=== PATIENT | male | born 1985 | race Caucasian/White ===

== ENCOUNTER 2025-07-19 18:49 | Observation (INO) ==
--- NOTE | 2025-07-19 19:00 | Emergency Department Note ---
Impression & Plan Hemoperitoneum, Post-operative pain, Tachycardia ED Provider Note NAME: GRAYSON RAMOS AGE: 40 SEX: M : 1985 ARRIVES VIA: Ambulance INFORMANT: Patient, ED PROVIDER(S): Frantz Youngblood DO CHIEF COMPLAINT: Abdominal pain HPI: The patient is a 40-year-old male who presented to the emergency department by ambulance for an evaluation of abdominal pain. The patient was experiencing abdominal distention and abdominal pain after having ventral hernia repair today. The patient called the on-call surgeon it was instructed to come to the emergency department. He denies having any headache but feels that he may pass out when he stands up. He describes difficulty breathing. He describes abdominal distention. ROS: See above HPI for pertinent positives & negatives. A total of 10 systems reviewed and were otherwise negative. PAST MEDICAL HISTORY: See Below PAST SURGICAL HISTORY: See Below FAMILY HISTORY: See Below SOCIAL HISTORY: See Below HOME MEDICATIONS: See Below ALLERGIES: See Below VITALS: See Below PHYSICAL EXAMINATION: GENERAL: The patient is awake and alert. He appears anxious and uncomfortable. EYES: The conjunctivae are clear. The pupils are round and reactive. EARS, NOSE, MOUTH AND THROAT: The nose is without any evidence of any deformity. NECK: The neck is nontender and supple. RESPIRATORY: Normal respiratory effort is noted there is no evidence of wheezing rhonchi or rales CARDIOVASCULAR: Tachycardic and regular heart sounds were noted to auscultation. There is no definite murmur. GASTROINTESTINAL: The abdomen was distended. There is diffuse tenderness to palpation. Surgical sites were noted. There was no erythema drainage or bleeding noted. Wound dressings are in place. MUSCULOSKELETAL/EXTREMITIES: There is no evidence of gross deformity full range of motion is noted in the hips and shoulders. SKIN: There is no obvious evidence of any rash. There are no petechiae, pallor or cyanosis noted. NEUROLOGIC: Patient is awake alert and oriented x3. Strength is symmetric. There is no facial droop. MEDICAL DECISION MAKING: The patient is a 40-year-old male who presented to the emergency department for an evaluation of abdominal pain. The patient is status post laparoscopic ventral hernia repair. The patient was tachycardic. She had episodes of hypotension. I discussed the patient's laboratory and radiographic studies with him. I discussed his condition with the on-call general surgeon. The patient was treated with IV pain medication and IV fluids. He was reevaluated multiple times. I did consent the patient for blood transfusion if needed. He was evaluated in the emergency department by the general surgeon. He was felt to be a good candidate for nonoperative management at this time but they will continue to monitor the patient's hemoglobin and clinical status. Triage Nursing notes reviewed. Prior medical records reviewed Vital Signs: reviewed and remarkable for tachycardia and intermittent hypotension. Differential diagnosis: Differential diagnosis could include postoperative bleeding, postoperative infection, postoperative pain. Also considered could be injury to adjacent structures. Other differentials were also considered. ER treatment provided: See below Diagnostics interpreted by me: ECG: EKG was obtained in the emergency department. My interpretation is sinus tachycardia at 125 bpm. There is no ectopy. There is no acute ST segment abnormalities noted. QTc was 433 ms. Cardiac Monitoring: An order was placed for continuous cardiac monitoring. The monitor shows a rate of 127 bpm with sinus tachycardia. Laboratory studies: As stated above and show below. Imaging studies: See below. Radiographic imaging was reviewed by myself Consultation(s): I discussed this case with Dr. Dao who is on-call for the general surgical group. ED COURSE: Procedures: none Critical Care: I have personally spent greater than 40 minutes of critical care time in the direct management of this patient. This includes bedside care, interpretation of diagnostic studies, and testing, discussion with consultants, patient, and family members, and other required patient management activities. This 40 minutes is in excess of all separately billable procedures. Past Med/Surg History Problem List (Updated 07/19/25 @ 23:19 by Frantz Youngblood DO) Tachycardia (Acute) Post-operative pain (Acute) Hemoperitoneum (Acute) Intra-abdominal hemorrhage after procedure Ventral hernia, recurrent Encounter for pre-operative examination Medical History Morbid obesity Acid reflux Sleep apnea CPAP Hypertension Surgical History History of hernia surgery 03/08/25: GA: elective Glidescope atraumatic x 1 (Glidescope #3, ETT#7.5, Gr View 2) Status post myringotomy with tube placement of both ears no anesthesia History of surgery on lower extremity Right - Tib/Fib - Hardware present History of ankle surgery Left - Hardware History of esophagogastroduodenoscopy (EGD) (01/2025) History of colonoscopy (01/2025) Family History Other No family history of adverse response to anesthesia Social History Smoking Status: Never smoker Tobacco Type: Smokeless Tobacco (Dip or Chew) Second Hand Exposure: No; Do You Dip or Chew Tobacco: Yes; Hx Alcohol Use: Yes Alcohol type: beer Hx Substance Use: No Preferred Language: Albanian Communication Ability: Effective 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 Beliefs That Will Affect Care: None Current Living Situation: Family Current Living Situation Comment: and Son Feels Safe at Home: Yes Assistive Devices: BiPap Allergies Allergies Allergy/AdvReac Type Severity Reaction Status Date / Time Penicillins Allergy Intermediate Hives Verified 07/19/25 07:06 Home Meds Home Medications Medication Instructions Recorded Confirmed lisinopril 5 mg tablet 5 mg PO QAM 02/26/25 07/08/25 pantoprazole 20 mg tablet,delayed 20 mg PO QAM 02/26/25 07/08/25 release Previous Rx's Medication Instructions Recorded oxycodone-acetaminophen 5 mg-325 1 tab PO Q6H PRN pain #14 tabs 07/19/25 mg tablet (Percocet) Results & Data (ED) Vital Signs Vital Signs - 24 hr 07/19/25 18:57 07/19/25 19:00 07/19/25 19:30 Temperature Temperature Source Pulse Rate 126 H 130 H 120 H Pulse Rate from SpO2 Sensor 128 H 120 H Pulse Rhythm Pulse Strength Respiratory Rate 24 17 Respiratory Effort / Characteristics Respiratory Depth Respiratory Pattern Blood Pressure 107/87 107/75 Blood Pressure Mean 93 85 Blood Pressure Position Pulse Oximetry 95 93 Oxygen Delivery Method Room Air Sepsis Recent Fever Within 48 Hours Sepsis New/Unexplained Change in Mental Status Sepsis Action Taken by Nursing 07/19/25 19:34 07/19/25 19:34 07/19/25 20:24 Temperature 37.0 C Temperature Source Oral Pulse Rate 124 H 124 H Pulse Rate from SpO2 Sensor Pulse Rhythm Regular Regular Pulse Strength Normal Respiratory Rate 18 18 Respiratory Effort / Characteristics Non-Labored Respiratory Depth Normal Respiratory Pattern Regular Blood Pressure 107/75 98/81 L Blood Pressure Mean 85 89 Blood Pressure Position Sitting Pulse Oximetry 95 95 Oxygen Delivery Method Room Air Room Air Sepsis Recent Fever Within 48 Hours No Sepsis New/Unexplained Change in Mental Status N/A Sepsis Action Taken by Nursing No Action Required 07/19/25 20:30 07/19/25 21:00 07/19/25 21:33 Temperature Temperature Source Pulse Rate 123 H 122 H 130 H Pulse Rate from SpO2 Sensor 123 H 122 H Pulse Rhythm Pulse Strength Respiratory Rate 25 H 18 20 Respiratory Effort / Characteristics Respiratory Depth Respiratory Pattern Blood Pressure 105/77 99/70 L 114/78 Blood Pressure Mean 86 79 90 Blood Pressure Position Pulse Oximetry 95 95 93 Oxygen Delivery Method Room Air Room Air Room Air Sepsis Recent Fever Within 48 Hours Sepsis New/Unexplained Change in Mental Status Sepsis Action Taken by Nursing 07/19/25 22:00 07/19/25 22:50 Temperature Temperature Source Pulse Rate 119 H 127 H Pulse Rate from SpO2 Sensor 118 H Pulse Rhythm Pulse Strength Respiratory Rate 18 Respiratory Effort / Characteristics Respiratory Depth Respiratory Pattern Blood Pressure 110/69 Blood Pressure Mean 82 Blood Pressure Position Pulse Oximetry 94 Oxygen Delivery Method Room Air Sepsis Recent Fever Within 48 Hours Sepsis New/Unexplained Change in Mental Status Sepsis Action Taken by Intermediate Medications Current Medication List: was personally reviewed by me Laboratory Data Attestation: I reviewed the patient's lab results. 07/19/25 22:37 07/19/25 18:50 Lab Results 07/19/25 07/19/25 07/19/25 Range/Units 18:50 19:31 21:35 WBC 14.75 H (4.8-10.8) K/ul RBC 4.13 L (4.70-6.10) M/uL Hgb 13.5 L D (14.0-18.0) g/dL POC Hgb 12.9 L (14.0-18.0) g/dl Hct 37.5 L (42.0-52.0) % POC Hct 38 L (42-52) % MCV 90.8 (80.0-100.0) fL MCH 32.7 (25.0-34.0) pg MCHC 36.0 (32.0-36.0) g/dL RDW Std Deviation 43.3 (36.4-46.3) fL RDW Coeff of Emily 13.2 (11.5-14.5) % Plt Count 212 (130-400) K/uL MPV 9.8 (9.4-12.4) fL Immature Gran % (Auto) 0.9 % Neut % (Auto) 86.8 % Lymph % (Auto) 8.8 % [place] % (Auto) 3.3 % Eos % (Auto) 0.0 % Baso % (Auto) 0.2 % Neut # (Auto) 12.81 H (1.40-6.50) K/uL Lymph # (Auto) 1.30 (1.20-3.40) K/uL [place] # (Auto) 0.48 (0.11-0.59) K/uL Eos # (Auto) 0.00 (0.00-0.50) K/uL Baso # (Auto) 0.03 (0.00-0.20) K/uL Immature Gran # (Auto) 0.13 (0.01-0.20) K/uL POC Sodium 133 L (135-144) mmol/L Sodium 134 L (136-145) mmol/L POC Potassium 5.9 H (3.3-5.0) mmol/L Potassium 5.3 H D (3.5-5.1) mmol/L POC Chloride 99 L (101-112) mmol/L Chloride 100 (98-107) mmol/L Carbon Dioxide 25 (21-32) mmol/L POC Total CO2 21 L (24-31) mmol/L Anion Gap 9 (3-11) POC Anion Gap 21.0 (16-25) mmol/L POC BUN 16 (7-18) mg/dl BUN 17 (6-23) mg/dl Creatinine 1.31 (0.6-1.4) mg/dl POC Creatinine 1.4 H (0.6-1.3) mg/dl Est Cr Clr Drug Dosing 100.3 ml/min eGFR 71.45 BUN/Creatinine Ratio 13.0 (10-20) Glucose 186 H (70-99(Fasting)) mg/dl POC Glucose (other) 171 H (70-99) mg/dl Calcium 8.5 L (8.6-10.3) mg/dl POC Ioniz Calcium [place] 0.99 L (1.12-1.32) mmol/l Total Bilirubin 0.9 (0.2-1.0) mg/dl AST 25 (13-39) U/L ALT 38 (7-52) U/L Alkaline Phosphatase 58 (34-104) U/L Troponin I High Sens 9.1 (0-20) pg/ml Total Protein 6.9 (6.0-8.3) gm/dl Albumin 4.0 (3.4-5.0) gm/dl Globulin 2.9 (2.5-4.0) gm/dl Albumin/Globulin Ratio 1.4 (0.9-2) Lipase 11 (11-82) U/L Urine Color Urine Appearance (Clear) Urine pH (4.5-7.5) Ur Specific [place] (1.000-1.030) Urine Protein (Negative) Urine Glucose (UA) (Negative) Urine Ketones (Negative) Urine Blood (Negative) Urine Nitrite (Negative) Urine Bilirubin (Negative) Urine Urobilinogen (Negative) Ur Leukocyte Esterase (Negative) Urine WBC (Auto) (0-5) /hpf Urine RBC (Auto) (0-2) /hpf U Hyaline Cast (Auto) (0-2) /lpf U Epithel Cells (Auto) (0-2) /hpf Urine Bacteria (Auto) (None Seen) Hyaline Casts (None Presnt) /lpf Urine Comment Blood Type A Positive Antibody Screen NEGATIVE 07/19/25 07/19/25 Range/Units 22:37 Unknown WBC (4.8-10.8) K/ul RBC (4.70-6.10) M/uL Hgb 11.4 L (14.0-18.0) g/dL POC Hgb (14.0-18.0) g/dl Hct 32.6 L (42.0-52.0) % POC Hct (42-52) % MCV (80.0-100.0) fL MCH (25.0-34.0) pg MCHC (32.0-36.0) g/dL RDW Std Deviation (36.4-46.3) fL RDW Coeff of Emily (11.5-14.5) % Plt Count (130-400) K/uL MPV (9.4-12.4) fL Immature Gran % (Auto) % Neut % (Auto) % Lymph % (Auto) % [place] % (Auto) % Eos % (Auto) % Baso % (Auto) % Neut # (Auto) (1.40-6.50) K/uL Lymph # (Auto) (1.20-3.40) K/uL [place] # (Auto) (0.11-0.59) K/uL Eos # (Auto) (0.00-0.50) K/uL Baso # (Auto) (0.00-0.20) K/uL Immature Gran # (Auto) (0.01-0.20) K/uL POC Sodium (135-144) mmol/L Sodium (136-145) mmol/L POC Potassium (3.3-5.0) mmol/L Potassium (3.5-5.1) mmol/L POC Chloride (101-112) mmol/L Chloride (98-107) mmol/L Carbon Dioxide (21-32) mmol/L POC Total CO2 (24-31) mmol/L Anion Gap (3-11) POC Anion Gap (16-25) mmol/L POC BUN (7-18) mg/dl BUN (6-23) mg/dl Creatinine (0.6-1.4) mg/dl POC Creatinine (0.6-1.3) mg/dl Est Cr Clr Drug Dosing ml/min eGFR BUN/Creatinine Ratio (10-20) Glucose (70-99(Fasting)) mg/dl POC Glucose (other) (70-99) mg/dl Calcium (8.6-10.3) mg/dl POC Ioniz Calcium [place] (1.12-1.32) mmol/l Total Bilirubin (0.2-1.0) mg/dl AST (13-39) U/L ALT (7-52) U/L Alkaline Phosphatase (34-104) U/L Troponin I High Sens (0-20) pg/ml Total Protein (6.0-8.3) gm/dl Albumin (3.4-5.0) gm/dl Globulin (2.5-4.0) gm/dl Albumin/Globulin Ratio (0.9-2) Lipase (11-82) U/L Urine Color Yellow Urine Appearance Clear (Clear) Urine pH 5.5 (4.5-7.5) Ur Specific [place] 1.036 H (1.000-1.030) Urine Protein 1+ H (Negative) Urine Glucose (UA) Negative (Negative) Urine Ketones Trace H (Negative) Urine Blood Negative (Negative) Urine Nitrite Negative (Negative) Urine Bilirubin Negative (Negative) Urine Urobilinogen Negative (Negative) Ur Leukocyte Esterase Negative (Negative) Urine WBC (Auto) 0-5 (0-5) /hpf Urine RBC (Auto) 0-2 (0-2) /hpf U Hyaline Cast (Auto) 11-20 H (0-2) /lpf U Epithel Cells (Auto) 0-2 (0-2) /hpf Urine Bacteria (Auto) None Seen (None Seen) Hyaline Casts Present A (None Presnt) /lpf Urine Comment Blood Type Antibody Screen Administered Medications Sodium Chloride (Nss) 1,000 mls @ 999 mls/hr IV .Q1H1M ONE Stop: 07/19/25 23:47 Last Admin: 07/19/25 22:56 Dose: 999 mls/hr Documented By: phill Discontinued Medications Sodium Chloride (Nss) 1,000 mls @ 999 mls/hr IV .Q1H1M STA Stop: 07/19/25 19:54 Last Infusion: 07/19/25 21:07 Dose: Infused Documented By: [email or web address] Admin: 07/19/25 19:20 Dose: 999 mls/hr Documented By: phill Sodium Chloride (Nss) 1,000 mls @ 999 mls/hr IV .Q1H1M ONE Stop: 07/19/25 22:10 Last Infusion: 07/19/25 22:30 Dose: Infused Documented By: phill Admin: 07/19/25 21:25 Dose: 999 mls/hr Documented By: phill Ioversol (Optiray 320 125ml) 118 ml IV ONCE ONE Stop: 07/19/25 20:05 Last Admin: 07/19/25 20:04 Dose: 118 ml Documented By: TONEY Morphine Sulfate (Morphine Sulfate 4 Mg/Ml 1 Ml Carp\Vial) 4 mg IV NOW STA Stop: 07/19/25 18:55 Last Admin: 07/19/25 19:20 Dose: 4 mg Documented By: phill Ondansetron HCl (Ondansetron Inj 2 Mg/Ml 2 Ml Vial) 4 mg IV NOW STA Stop: 07/19/25 18:55 Last Admin: 07/19/25 19:20 Dose: 4 mg Documented By: phill Imaging Data Attestation: I personally reviewed and interpreted this imaging study as follows: My Impression: CT of the abdomen and pelvis was obtained in the emergency department. My interpretation is free fluid noted in the abdomen, no free air, final report below. Radiologist's Impression: Abdomen/Pelvis CT 07/19/25 18:54 CR Exam(s): CT ABDOMEN + PELVIS With Contrast IV Amt: 119ml opti 320 EXAM: CT Abdomen and Pelvis With Intravenous Contrast CLINICAL HISTORY: Reason for exam: post op pain. TECHNIQUE: Axial computed tomography images of the abdomen and pelvis with intravenous contrast. CTDI is 27.34 mGy and DLP is 1511.65 mGy-cm. Automated exposure control was utilized for the study. A dose lowering technique was utilized adhering to the principles of ALARA. CONTRAST: Patient received 119ml opti 320 of IV contrast COMPARISON: No relevant prior studies available. FINDINGS: Lung bases: Please see separate dictation for details of the intra thoracic contents. ABDOMEN: Liver: Hepatic steatosis. Gallbladder and bile ducts: Unremarkable. No calcified stones. No ductal dilation. Pancreas: Unremarkable. No mass. No ductal dilation. Spleen: Unremarkable. No splenomegaly. Adrenals: Unremarkable. No mass. Kidneys and ureters: Unremarkable. No solid mass. No hydronephrosis. Stomach and bowel: Unremarkable. No obstruction. No mucosal thickening. PELVIS: Appendix: No findings to suggest acute appendicitis. Bladder: Unremarkable. No mass. Reproductive: Unremarkable as visualized. ABDOMEN and PELVIS: Intraperitoneal space: Midline anterior abdominal wall postsurgical change with fluid seen within the operative site. This measures roughly 1.8 x 8.1 cm. There is a 8.9 x 12 cm collection of hemorrhage seen within the left lower quadrant which investing itself between several loops of small bowel. Hyperdense fluid is seen elsewhere within the lower abdomen and in the perisplenic and perihepatic regions consistent with moderate hemoperitoneum. No free air. Bones/joints: No acute fracture. No dislocation. Soft tissues: Unremarkable. Vasculature: Unremarkable. No abdominal aortic aneurysm. Lymph nodes: Unremarkable. No enlarged lymph nodes. IMPRESSION: Moderate hemoperitoneum in the etiology of which is not clearly seen on this exam. There is large amount of hemorrhage however seen within the left lower quadrant. This may serve as a nidus of the intra abdominal bleeding. Hepatic steatosis Communications: Call Doctor Rolanditoneum, massive Electronically signed by: Chip Adams MD 07/19/25 21:26 PM Discharge Plan Visit Data Chief Complaint: Abdominal Pain Stated Complaint: AB PAIN ED Provider: Frantz Youngblood Discharge Problem: Hemoperitoneum, Post-operative pain, Tachycardia Patient Disposition: Being Evaluated by Surgeon Condition: Fair Forms Stand Alone Forms: [facility] [employer] Prescriptions Prescriptions: No Action pantoprazole 20 mg Tablet,Delayed Release (Dr/Ec) 20 mg PO QAM lisinopril 5 mg Tablet 5 mg PO QAM oxycodone-acetaminophen [Percocet] 5-325 mg tablet 1 tab PO Q6H PRN (Reason: pain) Qty: 14 0RF Referrals Referrals: PCP,NO [Physician] -
[2025-07-19] MEDS: SODIUM CHLORIDE 0.9% 1,000 ML IV STA (19:20)
[2025-07-19] MEDS: ONDANSETRON INJ 2 MG/ML 2 ML VIAL IV STA (19:20)
[2025-07-19] MEDS: MoRPHine SULFATE 4 MG/ML 1 ML CARP\\VIAL IV STA ×2 (19:20→23:30)
[2025-07-19 19:27] LABS: Hematocrit (blood only) 37.5 % (42.0-52.0); Hemoglobin 13.5 g/dL (14.0-18.0); Mean Corpuscular Hemoglobin 32.7 pg (25.0-34.0); Mean Corpuscular Volume 90.8 fL (80.0-100.0); Platelet Count 212 K/uL (130-400); RDW Standard Deviation 43.3 fL (36.4-46.3); Red Blood Count 4.13 M/uL (4.70-6.10); White Blood Count 14.75 K/ul (4.8-10.8)
[2025-07-19 19:28] LABS: Immature Granulocytes # (auto) 0.13 K/uL (0.01-0.20); Immature Granulocytes % (auto) 0.9 %
[2025-07-19 19:59] LABS: Alanine Aminotransferase 38.0 U/L (7-52); Albumin Globulin Ratio 1.4 (0.9-2); Albumin Level 4.0 gm/dl (3.4-5.0); Alkaline Phosphatase 58.0 U/L (34-104); Anion Gap 9.0 (3-11); Bilirubin,Total 0.9 mg/dl (0.2-1.0); Blood Urea Nitrogen 17.0 mg/dl (6-23); Calcium 8.5 mg/dl (8.6-10.3); Carbon Dioxide 25.0 mmol/L (21-32); Chloride 100.0 mmol/L (98-107); Creatinine Clr Calc Pharmacy 100.3 ml/min; Globulin 2.9 gm/dl (2.5-4.0); Glucose 186.0 mg/dl (70-99(Fasting)); Lipase 11.0 U/L (11-82); Potassium 5.3 mmol/L (3.5-5.1); Sodium 134.0 mmol/L (136-145); Total Protein 6.9 gm/dl (6.0-8.3)
[2025-07-19] MEDS: OPTIRAY 320 125ml IV ONE (20:04)
[2025-07-19] MEDS: SODIUM CHLORIDE 0.9% 1,000 ML IV ONE ×2 (21:25→22:56)
--- NOTE | 2025-07-19 21:27 | CT Scan Report ---
Exam(s): CT ABDOMEN + PELVIS With Contrast IV Amt: 119ml opti 320 EXAM: CT Abdomen and Pelvis With Intravenous Contrast CLINICAL HISTORY: Reason for exam: post op pain. TECHNIQUE: Axial computed tomography images of the abdomen and pelvis with intravenous contrast. CTDI is 27.34 mGy and DLP is 1511.65 mGy-cm. Automated exposure control was utilized for the study. A dose lowering technique was utilized adhering to the principles of ALARA. CONTRAST: Patient received 119ml opti 320 of IV contrast COMPARISON: No relevant prior studies available. FINDINGS: Lung bases: Please see separate dictation for details of the intra thoracic contents. ABDOMEN: Liver: Hepatic steatosis. Gallbladder and bile ducts: Unremarkable. No calcified stones. No ductal dilation. Pancreas: Unremarkable. No mass. No ductal dilation. Spleen: Unremarkable. No splenomegaly. Adrenals: Unremarkable. No mass. Kidneys and ureters: Unremarkable. No solid mass. No hydronephrosis. Stomach and bowel: Unremarkable. No obstruction. No mucosal thickening. PELVIS: Appendix: No findings to suggest acute appendicitis. Bladder: Unremarkable. No mass. Reproductive: Unremarkable as visualized. ABDOMEN and PELVIS: Intraperitoneal space: Midline anterior abdominal wall postsurgical change with fluid seen within the operative site. This measures roughly 1.8 x 8.1 cm. There is a 8.9 x 12 cm collection of hemorrhage seen within the left lower quadrant which investing itself between several loops of small bowel. Hyperdense fluid is seen elsewhere within the lower abdomen and in the perisplenic and perihepatic regions consistent with moderate hemoperitoneum. No free air. Bones/joints: No acute fracture. No dislocation. Soft tissues: Unremarkable. Vasculature: Unremarkable. No abdominal aortic aneurysm. Lymph nodes: Unremarkable. No enlarged lymph nodes. IMPRESSION: Moderate hemoperitoneum in the etiology of which is not clearly seen on this exam. There is large amount of hemorrhage however seen within the left lower quadrant. This may serve as a nidus of the intra abdominal bleeding. Hepatic steatosis Communications: Call Doctor Hemoperitoneum, massive Electronically signed by: Chip Adams MD 07/19/25 21:26 PM
[2025-07-19 22:06] LABS: Appearance Urine Clear (Clear); Bacteria Urine Automated None Seen (None Seen); Epithelial Cell Urine Auto 0-2 /hpf (0-2); Glucose Urine UA Negative (Negative); RBC Urine Automated 0-2 /hpf (0-2); WBC Urine Automated 0-5 /hpf (0-5)
--- NOTE | 2025-07-19 22:56 | History & Physical Report ---
Date of Service July 19, 2025 Assessment & Plan (1) Intra-abdominal hemorrhage after procedure: Plan: 40-year-old gentleman POD #0 status post laparoscopic ventral hernia repair with mesh. Found to have moderate hemoperitoneum. He is stable. Repeat hemog lobin and hematocrit are stable at 12.9 and 38. We will admit him to the hospital for observation and IV fluid hydration. Will check serial blood counts. No urgent surgical intervention required at this time. Will closely follow. He will be n.p.o. for possible procedure. History of Present Illness Primary Care Provider: Lino Benavidez MD 40-year-old status post a laparoscopic ventral hernia repair this morning presents to the hospital this evening with pain and some lightheadedness. C alled and to the answering service and we recommended returning to the hospital for recheck. CT scan demonstrates a moderate amount of fluid concerning for postoperative hemorrhage. No blush or signs of active arterial bleed. Some nausea, no vomiting. No fevers. Allergies Allergy/AdvReac Type Severity Reaction Status Date / Time Penicillins Allergy Intermediate Hives Verified 07/19/25 07:06 Home Medications Medication Instructions Recorded Confirmed Type lisinopril 5 mg tablet 5 mg PO QAM 02/26/25 07/08/25 History pantoprazole 20 mg tablet,delayed 20 mg PO QAM 02/26/25 07/08/25 History release oxycodone-acetaminophen 5 mg-325 1 tab PO Q6H PRN pain #14 tabs 07/19/25 Rx mg tablet (Percocet) Past Med/Surg History Problem List (Updated 07/19/25 @ 23:01 by Tam Dao MD) Intra-abdominal hemorrhage after procedure Ventral hernia, recurrent Encounter for pre-operative examination Medical History Morbid obesity Acid reflux Sleep apnea CPAP Hypertension Surgical History History of hernia surgery 03/08/25: [place]: elective Glidescope atraumatic x 1 (Glidescope #3, ETT#7.5, Gr View 2) Status post myringotomy with tube placement of both ears no anesthesia History of surgery on lower extremity Right - Tib/Fib - Hardware present History of ankle surgery Left - Hardware History of esophagogastroduodenoscopy (EGD) (01/2025) History of colonoscopy (01/2025) Family History Other No family history of adverse response to anesthesia Social History Smoking Status: Never smoker Tobacco Type: Smokeless Tobacco (Dip or Chew) Second Hand Exposure: No; Do You Dip or Chew Tobacco: Yes; Hx Alcohol Use: Yes Alcohol type: beer Hx Substance Use: No Preferred Language: Chilean Communication Ability: Effective Ware[employer] Incentive Selector Required: No Beliefs That Will Affect Care: None Current Living Situation: Family Current Living Situation Comment: and Son Feels Safe at Home: Yes Assistive Devices: BiPap Review of Systems Review of Systems: All systems reviewed & are unremarkable except as noted in HPI & below Physical Exam Constitutional: WD/WN, vitals as above Eyes: PERRL, conjunctivae normal, anicteric sclerae Neck: trachea midline, no thyromegaly Respiratory: normal respiratory effort; no respiratory distress and no labored breathing Cardiovascular: Rate/Rhythm: regular rhythm and + tachycardic Gastrointestinal (Abdomen): Inspection/Auscultation: abdomen normal to inspection and + abdomen distended ( mild) Percussion/Palpation: + abdomen tender ( Mild diffuse, at incisions) and abdomen soft; no guarding and abdomen not rigid Skin: no rashes, warm and dry Psychiatric: A+Ox3, euthymic affect Results & Data Results & Data Vital Signs (Past 12 Hours) Vital Signs Temp Pulse Resp BP Pulse Ox O2 Del Method 07/19/25 22:00 119 H 18 110/69 94 Room Air 07/19/25 21:33 130 H 20 114/78 93 Room Air 07/19/25 21:00 122 H 18 99/70 L 95 Room Air 07/19/25 20:30 123 H 25 H 105/77 95 Room Air 07/19/25 20:24 98/81 L 07/19/25 19:34 124 H 18 95 Room Air 07/19/25 19:34 37.0 C 124 H 18 107/75 95 Room Air 07/19/25 19:30 120 H 17 107/75 93 07/19/25 19:00 130 H 24 107/87 95 Room Air 07/19/25 18:57 126 H Laboratory Results 07/19/25 07/19/25 07/19/25 Range/Units Unknown 21:35 19:31 WBC (4.8-10.8) K/ul RBC (4.70-6.10) M/uL Hgb (14.0-18.0) g/dL POC Hgb 12.9 L (14.0-18.0) g/dl Hct (42.0-52.0) % POC Hct 38 L (42-52) % MCV (80.0-100.0) fL MCH (25.0-34.0) pg MCHC (32.0-36.0) g/dL RDW Std Deviation (36.4-46.3) fL RDW Coeff of Emily (11.5-14.5) % Plt Count (130-400) K/uL MPV (9.4-12.4) fL Immature Gran % (Auto) % Neut % (Auto) % Lymph % (Auto) % [place] % (Auto) % Eos % (Auto) % Baso % (Auto) % Neut # (Auto) (1.40-6.50) K/uL Lymph # (Auto) (1.20-3.40) K/uL [place] # (Auto) (0.11-0.59) K/uL Eos # (Auto) (0.00-0.50) K/uL Baso # (Auto) (0.00-0.20) K/uL Immature Gran # (Auto) (0.01-0.20) K/uL POC Sodium 133 L (135-144) mmol/L Sodium (136-145) mmol/L POC Potassium 5.9 H (3.3-5.0) mmol/L Potassium (3.5-5.1) mmol/L POC Chloride 99 L (101-112) mmol/L Chloride (98-107) mmol/L Carbon Dioxide (21-32) mmol/L POC Total CO2 21 L (24-31) mmol/L Anion Gap (3-11) POC Anion Gap 21.0 (16-25) mmol/L POC BUN 16 (7-18) mg/dl BUN (6-23) mg/dl Creatinine (0.6-1.4) mg/dl POC Creatinine 1.4 H (0.6-1.3) mg/dl Est Cr Clr Drug Dosing ml/min eGFR BUN/Creatinine Ratio (10-20) Glucose (70-99(Fasting)) mg/dl POC Glucose (other) 171 H (70-99) mg/dl Calcium (8.6-10.3) mg/dl POC Ioniz Calcium [place] 0.99 L (1.12-1.32) mmol/l Total Bilirubin (0.2-1.0) mg/dl AST (13-39) U/L ALT (7-52) U/L Alkaline Phosphatase (34-104) U/L Troponin I High Sens (0-20) pg/ml Total Protein (6.0-8.3) gm/dl Albumin (3.4-5.0) gm/dl Globulin (2.5-4.0) gm/dl Albumin/Globulin Ratio (0.9-2) Lipase (11-82) U/L Urine Color Yellow Urine Appearance Clear (Clear) Urine pH 5.5 (4.5-7.5) Ur Specific [place] 1.036 H (1.000-1.030) Urine Protein 1+ H (Negative) Urine Glucose (UA) Negative (Negative) Urine Ketones Trace H (Negative) Urine Blood Negative (Negative) Urine Nitrite Negative (Negative) Urine Bilirubin Negative (Negative) Urine Urobilinogen Negative (Negative) Ur Leukocyte Esterase Negative (Negative) Urine WBC (Auto) 0-5 (0-5) /hpf Urine RBC (Auto) 0-2 (0-2) /hpf U Hyaline Cast (Auto) 11-20 H (0-2) /lpf U Epithel Cells (Auto) 0-2 (0-2) /hpf Urine Bacteria (Auto) None Seen (None Seen) Hyaline Casts Present A (None Presnt) /lpf Urine Comment Blood Type Pending Antibody Screen Pending 07/19/25 Range/Units 18:50 WBC 14.75 H (4.8-10.8) K/ul RBC 4.13 L (4.70-6.10) M/uL Hgb 13.5 L D (14.0-18.0) g/dL POC Hgb (14.0-18.0) g/dl Hct 37.5 L (42.0-52.0) % POC Hct (42-52) % MCV 90.8 (80.0-100.0) fL MCH 32.7 (25.0-34.0) pg MCHC 36.0 (32.0-36.0) g/dL RDW Std Deviation 43.3 (36.4-46.3) fL RDW Coeff of Emily 13.2 (11.5-14.5) % Plt Count 212 (130-400) K/uL MPV 9.8 (9.4-12.4) fL Immature Gran % (Auto) 0.9 % Neut % (Auto) 86.8 % Lymph % (Auto) 8.8 % [place] % (Auto) 3.3 % Eos % (Auto) 0.0 % Baso % (Auto) 0.2 % Neut # (Auto) 12.81 H (1.40-6.50) K/uL Lymph # (Auto) 1.30 (1.20-3.40) K/uL [place] # (Auto) 0.48 (0.11-0.59) K/uL Eos # (Auto) 0.00 (0.00-0.50) K/uL Baso # (Auto) 0.03 (0.00-0.20) K/uL Immature Gran # (Auto) 0.13 (0.01-0.20) K/uL POC Sodium (135-144) mmol/L Sodium 134 L (136-145) mmol/L POC Potassium (3.3-5.0) mmol/L Potassium 5.3 H D (3.5-5.1) mmol/L POC Chloride (101-112) mmol/L Chloride 100 (98-107) mmol/L Carbon Dioxide 25 (21-32) mmol/L POC Total CO2 (24-31) mmol/L Anion Gap 9 (3-11) POC Anion Gap (16-25) mmol/L POC BUN (7-18) mg/dl BUN 17 (6-23) mg/dl Creatinine 1.31 (0.6-1.4) mg/dl POC Creatinine (0.6-1.3) mg/dl Est Cr Clr Drug Dosing 100.3 ml/min eGFR 71.45 BUN/Creatinine Ratio 13.0 (10-20) Glucose 186 H (70-99(Fasting)) mg/dl POC Glucose (other) (70-99) mg/dl Calcium 8.5 L (8.6-10.3) mg/dl POC Ioniz Calcium [place] (1.12-1.32) mmol/l Total Bilirubin 0.9 (0.2-1.0) mg/dl AST 25 (13-39) U/L ALT 38 (7-52) U/L Alkaline Phosphatase 58 (34-104) U/L Troponin I High Sens 9.1 (0-20) pg/ml Total Protein 6.9 (6.0-8.3) gm/dl Albumin 4.0 (3.4-5.0) gm/dl Globulin 2.9 (2.5-4.0) gm/dl Albumin/Globulin Ratio 1.4 (0.9-2) Lipase 11 (11-82) U/L Urine Color Urine Appearance (Clear) Urine pH (4.5-7.5) Ur Specific [place] (1.000-1.030) Urine Protein (Negative) Urine Glucose (UA) (Negative) Urine Ketones (Negative) Urine Blood (Negative) Urine Nitrite (Negative) Urine Bilirubin (Negative) Urine Urobilinogen (Negative) Ur Leukocyte Esterase (Negative) Urine WBC (Auto) (0-5) /hpf Urine RBC (Auto) (0-2) /hpf U Hyaline Cast (Auto) (0-2) /lpf U Epithel Cells (Auto) (0-2) /hpf Urine Bacteria (Auto) (None Seen) Hyaline Casts (None Presnt) /lpf Urine Comment Blood Type Antibody Screen Diagnostic Findings Exam(s): CT ABDOMEN + PELVIS With Contrast IV Amt: 119ml opti 320 EXAM: CT Abdomen and Pelvis With Intravenous Contrast CLINICAL HISTORY: Reason for exam: post op pain. TECHNIQUE: Axial computed tomography images of the abdomen and pelvis with intravenous contrast. CTDI is 27.34 mGy and DLP is 1511.65 mGy-cm. Automated exposure control was utilized for the study. A dose lowering technique was utilized adhering to the principles of ALARA. CONTRAST: Patient received 119ml opti 320 of IV contrast COMPARISON: No relevant prior studies available. FINDINGS: Lung bases: Please see separate dictation for details of the intra thoracic contents. ABDOMEN: Liver: Hepatic steatosis. Gallbladder and bile ducts: Unremarkable. No calcified stones. No ductal dilation. Pancreas: Unremarkable. No mass. No ductal dilation. Spleen: Unremarkable. No splenomegaly. Adrenals: Unremarkable. No mass. Kidneys and ureters: Unremarkable. No solid mass. No hydronephrosis. Stomach and bowel: Unremarkable. No obstruction. No mucosal thickening. PELVIS: Appendix: No findings to suggest acute appendicitis. Bladder: Unremarkable. No mass. Reproductive: Unremarkable as visualized. ABDOMEN and PELVIS: Intraperitoneal space: Midline anterior abdominal wall postsurgical change with fluid seen within the operative site. This measures roughly 1.8 x 8.1 cm. There is a 8.9 x 12 cm collection of hemorrhage seen within the left lower quadrant which investing itself between several loops of small bowel. Hyperdense fluid is seen elsewhere within the lower abdomen and in the perisplenic and perihepatic regions consistent with moderate hemoperitoneum. No free air. Bones/joints: No acute fracture. No dislocation. Soft tissues: Unremarkable. Vasculature: Unremarkable. No abdominal aortic aneurysm. Lymph nodes: Unremarkable. No enlarged lymph nodes. IMPRESSION: Moderate hemoperitoneum in the etiology of which is not clearly seen on this exam. There is large amount of hemorrhage however seen within the left lower quadrant. This may serve as a nidus of the intra abdominal bleeding. Hepatic steatosis Code Status & VTE Plan VTE Prophylaxis Plan VTE Prophylaxis will be ordered: Yes
[2025-07-19 23:15] LABS: Hematocrit (blood only) 32.6 % (42.0-52.0); Hemoglobin 11.4 g/dL (14.0-18.0)
[2025-07-19] MEDS ORDERED: MoRPHine SULFATE 4 MG/ML 1 ML CARP\\VIAL IV PRN (23:52)
[2025-07-19] MEDS ORDERED: diphenhydrAMINE Capsule 25 MG CAP PO PRN (23:52)
[2025-07-19] MEDS ORDERED: PROMETHAZINE 12.5 MG/50.5 ML BAG IV PRN (23:52)
[2025-07-19] MEDS ORDERED: ONDANSETRON INJ 2 MG/ML 2 ML VIAL IV PRN (23:52)
[2025-07-20] MEDS: LACTATED RINGER'S 1,000 ML IV SCH (00:30)
[2025-07-20] MEDS: MoRPHine SULFATE 2 MG/ML CARP IV PRN (02:56)
--- NOTE | 2025-07-20 03:18 | CT Scan Report ---
Exam(s): CTA CHEST IV Amt: 119ml opti 320 EXAM: CT Angiography Chest With Intravenous Contrast CLINICAL HISTORY: PE. TECHNIQUE: Axial computed tomographic angiography images of the chest with intravenous contrast. MIPS images were created and reviewed. CTDI is 27. 34 mGy and DLP is 1511.65 mGy-cm. Automated exposure control was utilized for the study. A dose lowering technique was utilized adhering to the principles of ALARA. MIP reconstructed images were created and reviewed. COMPARISON: No relevant prior studies available. FINDINGS: Pulmonary arteries: Unremarkable. No pulmonary embolus. Aorta: No acute findings. No thoracic aortic aneurysm. Lungs: Unremarkable. No mass. No consolidation. Pleural space: Unremarkable. No significant effusion. No pneumothorax. Heart: Unremarkable. No cardiomegaly. No significant pericardial effusion. No evidence of RV dysfunction. Bones/joints: No acute fracture. No dislocation. Soft tissues: There is bilateral gynecomastia. Lymph nodes: Unremarkable. No enlarged lymph nodes. Other findings: Please see dedicated CT abdomen and pelvis report regarding the anterior abdominal findings. IMPRESSION: 1. No pulmonary embolus. No acute finding of the chest. 2. Please see dedicated CT abdomen and pelvis report regarding the anterior abdominal findings. Electronically signed by: Sarah Jackson MD 07/20/25 03:14 AM
[2025-07-20 07:24] LABS: Hematocrit (blood only) 27.7 % (42.0-52.0); Hemoglobin 9.8 g/dL (14.0-18.0); Immature Granulocytes # (auto) 0.08 K/uL (0.01-0.20); Immature Granulocytes % (auto) 0.7 %; Mean Corpuscular Hemoglobin 33.1 pg (25.0-34.0); Mean Corpuscular Volume 93.6 fL (80.0-100.0); Platelet Count 159 K/uL (130-400); RDW Standard Deviation 46.1 fL (36.4-46.3); Red Blood Count 2.96 M/uL (4.70-6.10); White Blood Count 11.72 K/ul (4.8-10.8)
[2025-07-20 07:39] LABS: Anion Gap 10.0 (3-11); Blood Urea Nitrogen 16.0 mg/dl (6-23); Carbon Dioxide 24.0 mmol/L (21-32); Chloride 103.0 mmol/L (98-107); Potassium 4.2 mmol/L (3.5-5.1); Sodium 137.0 mmol/L (136-145)
[2025-07-20 07:40] LABS: Calcium 7.6 mg/dl (8.6-10.3); Creatinine Clr Calc Pharmacy 123.6 ml/min; Glucose 162.0 mg/dl (70-99(Fasting))
--- NOTE | 2025-07-20 08:45 | Surgery Progress Note ---
Date of Service July 20, 2025 Assessment & Plan (1) Intra-abdominal hemorrhage after procedure: Plan: 40-year-old gentleman POD #0 status post laparoscopic ventral hernia repair with mesh. Found to have moderate hemoperitoneum. He is stable. Repeat hemog lobin and hematocrit are stable at 12.9 and 38. We will admit him to the hospital for observation and IV fluid hydration. Will check serial blood counts. No urgent surgical intervention required at this time. Will closely follow. He will be n.p.o. for possible procedure. 07/20/2025 - Feeling better this morning. Further drop in H/H to 9.8/28, not surprising given overnight fluid hydration. Vital stable. Will continue to track blood count. Will discuss with Dr. Daily this morning. Admission and Anticipated Discharge Date Admission Date: July 19, 2025 Subjective feeling better this am. minimal pain; some abdominal distention Physical Exam Physical Exam: NAD A&Ox3 NCAT abd soft, mild TTP, mild distention incisions C/D/I Results & Data Vital Signs (Past 12 Hours) Vital Signs Temp Pulse Pulse Resp BP BP Pulse Ox 07/20/25 07:18 37.1 C 108 H 16 124/78 95 07/20/25 06:04 37 C 102 H 18 131/79 97 07/20/25 03:41 112 H 20 95 07/20/25 03:30 36.9 C 101 H 18 131/75 96 07/20/25 01:04 114 H 22 94 07/20/25 00:22 37.2 C 119 H 16 140/87 95 07/20/25 00:10 07/20/25 00:10 37.2 C 119 H 16 140/87 95 07/19/25 23:20 121 H 20 110/71 95 07/19/25 22:50 127 H 07/19/25 22:00 119 H 18 110/69 94 07/19/25 21:33 130 H 20 114/78 93 07/19/25 21:00 122 H 18 99/70 L 95 O2 Del Method 07/20/25 07:18 Room Air 07/20/25 06:04 Room Air 07/20/25 03:41 07/20/25 03:30 CPAP 07/20/25 01:04 07/20/25 00:22 Room Air 07/20/25 00:10 Room Air, CPAP 07/20/25 00:10 Room Air 07/19/25 23:20 07/19/25 22:50 07/19/25 22:00 Room Air 07/19/25 21:33 Room Air 07/19/25 21:00 Room Air Laboratory Results 07/20/25 07/19/25 07/19/25 Range/Units 06:59 Unknown 22:37 WBC 11.72 H (4.8-10.8) K/ul RBC 2.96 L (4.70-6.10) M/uL Hgb 9.8 L 11.4 L (14.0-18.0) g/dL POC Hgb (14.0-18.0) g/dl Hct 27.7 L 32.6 L (42.0-52.0) % POC Hct (42-52) % MCV 93.6 (80.0-100.0) fL MCH 33.1 (25.0-34.0) pg MCHC 35.4 (32.0-36.0) g/dL RDW Std Deviation 46.1 (36.4-46.3) fL RDW Coeff of Emily 13.6 (11.5-14.5) % Plt Count 159 (130-400) K/uL MPV 9.8 (9.4-12.4) fL Immature Gran % (Auto) 0.7 % Neut % (Auto) 77.0 % Lymph % (Auto) 11.1 % [place] % (Auto) 11.0 % Eos % (Auto) 0.0 % Baso % (Auto) 0.2 % Neut # (Auto) 9.03 H (1.40-6.50) K/uL Lymph # (Auto) 1.30 (1.20-3.40) K/uL [place] # (Auto) 1.29 H (0.11-0.59) K/uL Eos # (Auto) 0.00 (0.00-0.50) K/uL Baso # (Auto) 0.02 (0.00-0.20) K/uL Immature Gran # (Auto) 0.08 (0.01-0.20) K/uL POC Sodium (135-144) mmol/L Sodium 137 (136-145) mmol/L POC Potassium (3.3-5.0) mmol/L Potassium 4.2 D (3.5-5.1) mmol/L POC Chloride (101-112) mmol/L Chloride 103 (98-107) mmol/L Carbon Dioxide 24 (21-32) mmol/L POC Total CO2 (24-31) mmol/L Anion Gap 10 (3-11) POC Anion Gap (16-25) mmol/L POC BUN (7-18) mg/dl BUN 16 (6-23) mg/dl Creatinine 1.06 (0.6-1.4) mg/dl POC Creatinine (0.6-1.3) mg/dl Est Cr Clr Drug Dosing 123.6 ml/min eGFR 92.12 BUN/Creatinine Ratio 15.1 (10-20) Glucose 162 H (70-99(Fasting)) mg/dl POC Glucose (other) (70-99) mg/dl Calcium 7.6 L (8.6-10.3) mg/dl POC Ioniz Calcium [place] (1.12-1.32) mmol/l Total Bilirubin (0.2-1.0) mg/dl AST (13-39) U/L ALT (7-52) U/L Alkaline Phosphatase (34-104) U/L Troponin I High Sens (0-20) pg/ml Total Protein (6.0-8.3) gm/dl Albumin (3.4-5.0) gm/dl Globulin (2.5-4.0) gm/dl Albumin/Globulin Ratio (0.9-2) Lipase (11-82) U/L Urine Color Yellow Urine Appearance Clear (Clear) Urine pH 5.5 (4.5-7.5) Ur Specific [place] 1.036 H (1.000-1.030) Urine Protein 1+ H (Negative) Urine Glucose (UA) Negative (Negative) Urine Ketones Trace H (Negative) Urine Blood Negative (Negative) Urine Nitrite Negative (Negative) Urine Bilirubin Negative (Negative) Urine Urobilinogen Negative (Negative) Ur Leukocyte Esterase Negative (Negative) Urine WBC (Auto) 0-5 (0-5) /hpf Urine RBC (Auto) 0-2 (0-2) /hpf U Hyaline Cast (Auto) 11-20 H (0-2) /lpf U Epithel Cells (Auto) 0-2 (0-2) /hpf Urine Bacteria (Auto) None Seen (None Seen) Hyaline Casts Present A (None Presnt) /lpf Urine Comment Blood Type Antibody Screen 07/19/25 07/19/25 07/19/25 Range/Units 21:35 19:31 18:50 WBC 14.75 H (4.8-10.8) K/ul RBC 4.13 L (4.70-6.10) M/uL Hgb 13.5 L D (14.0-18.0) g/dL POC Hgb 12.9 L (14.0-18.0) g/dl Hct 37.5 L (42.0-52.0) % POC Hct 38 L (42-52) % MCV 90.8 (80.0-100.0) fL MCH 32.7 (25.0-34.0) pg MCHC 36.0 (32.0-36.0) g/dL RDW Std Deviation 43.3 (36.4-46.3) fL RDW Coeff of Emily 13.2 (11.5-14.5) % Plt Count 212 (130-400) K/uL MPV 9.8 (9.4-12.4) fL Immature Gran % (Auto) 0.9 % Neut % (Auto) 86.8 % Lymph % (Auto) 8.8 % [place] % (Auto) 3.3 % Eos % (Auto) 0.0 % Baso % (Auto) 0.2 % Neut # (Auto) 12.81 H (1.40-6.50) K/uL Lymph # (Auto) 1.30 (1.20-3.40) K/uL [place] # (Auto) 0.48 (0.11-0.59) K/uL Eos # (Auto) 0.00 (0.00-0.50) K/uL Baso # (Auto) 0.03 (0.00-0.20) K/uL Immature Gran # (Auto) 0.13 (0.01-0.20) K/uL POC Sodium 133 L (135-144) mmol/L Sodium 134 L (136-145) mmol/L POC Potassium 5.9 H (3.3-5.0) mmol/L Potassium 5.3 H D (3.5-5.1) mmol/L POC Chloride 99 L (101-112) mmol/L Chloride 100 (98-107) mmol/L Carbon Dioxide 25 (21-32) mmol/L POC Total CO2 21 L (24-31) mmol/L Anion Gap 9 (3-11) POC Anion Gap 21.0 (16-25) mmol/L POC BUN 16 (7-18) mg/dl BUN 17 (6-23) mg/dl Creatinine 1.31 (0.6-1.4) mg/dl POC Creatinine 1.4 H (0.6-1.3) mg/dl Est Cr Clr Drug Dosing 100.3 ml/min eGFR 71.45 BUN/Creatinine Ratio 13.0 (10-20) Glucose 186 H (70-99(Fasting)) mg/dl POC Glucose (other) 171 H (70-99) mg/dl Calcium 8.5 L (8.6-10.3) mg/dl POC Ioniz Calcium [place] 0.99 L (1.12-1.32) mmol/l Total Bilirubin 0.9 (0.2-1.0) mg/dl AST 25 (13-39) U/L ALT 38 (7-52) U/L Alkaline Phosphatase 58 (34-104) U/L Troponin I High Sens 9.1 (0-20) pg/ml Total Protein 6.9 (6.0-8.3) gm/dl Albumin 4.0 (3.4-5.0) gm/dl Globulin 2.9 (2.5-4.0) gm/dl Albumin/Globulin Ratio 1.4 (0.9-2) Lipase 11 (11-82) U/L Urine Color Urine Appearance (Clear) Urine pH (4.5-7.5) Ur Specific [place] (1.000-1.030) Urine Protein (Negative) Urine Glucose (UA) (Negative) Urine Ketones (Negative) Urine Blood (Negative) Urine Nitrite (Negative) Urine Bilirubin (Negative) Urine Urobilinogen (Negative) Ur Leukocyte Esterase (Negative) Urine WBC (Auto) (0-5) /hpf Urine RBC (Auto) (0-2) /hpf U Hyaline Cast (Auto) (0-2) /lpf U Epithel Cells (Auto) (0-2) /hpf Urine Bacteria (Auto) (None Seen) Hyaline Casts (None Presnt) /lpf Urine Comment Blood Type A Positive Antibody Screen NEGATIVE
[2025-07-20 14:35] LABS: Hematocrit (blood only) 24.5 % (42.0-52.0); Hemoglobin 8.6 g/dL (14.0-18.0); Immature Granulocytes # (auto) 0.06 K/uL (0.01-0.20); Immature Granulocytes % (auto) 0.6 %; Mean Corpuscular Hemoglobin 32.6 pg (25.0-34.0); Mean Corpuscular Volume 92.8 fL (80.0-100.0); Platelet Count 126 K/uL (130-400); RDW Standard Deviation 46.5 fL (36.4-46.3); Red Blood Count 2.64 M/uL (4.70-6.10); White Blood Count 9.40 K/ul (4.8-10.8)
[2025-07-20 19:57] LABS: Hematocrit (blood only) 23.2 % (42.0-52.0); Hemoglobin 8.2 g/dL (14.0-18.0); Immature Granulocytes # (auto) 0.07 K/uL (0.01-0.20); Immature Granulocytes % (auto) 0.7 %; Mean Corpuscular Hemoglobin 32.9 pg (25.0-34.0); Mean Corpuscular Volume 93.2 fL (80.0-100.0); Platelet Count 117 K/uL (130-400); RDW Standard Deviation 46.3 fL (36.4-46.3); Red Blood Count 2.49 M/uL (4.70-6.10); White Blood Count 9.44 K/ul (4.8-10.8)
[2025-07-21 07:16] LABS: Hematocrit (blood only) 21.6 % (42.0-52.0); Hemoglobin 7.5 g/dL (14.0-18.0); Mean Corpuscular Hemoglobin 33.0 pg (25.0-34.0); Mean Corpuscular Volume 95.2 fL (80.0-100.0); Platelet Count 105 K/uL (130-400); RDW Standard Deviation 47.8 fL (36.4-46.3); Red Blood Count 2.27 M/uL (4.70-6.10); White Blood Count 8.04 K/ul (4.8-10.8)
[2025-07-21 07:44] LABS: Immature Granulocytes # (auto) 0.06 K/uL (0.01-0.20); Immature Granulocytes % (auto) 0.7 %; Polychromasia 1+
[2025-07-21 08:03] LABS: Anion Gap 5.0 (3-11); Blood Urea Nitrogen 11.0 mg/dl (6-23); Calcium 7.8 mg/dl (8.6-10.3); Carbon Dioxide 31.0 mmol/L (21-32); Chloride 102.0 mmol/L (98-107); Creatinine Clr Calc Pharmacy 144.0 ml/min; Glucose 121.0 mg/dl (70-99(Fasting)); Potassium 3.6 mmol/L (3.5-5.1); Sodium 138.0 mmol/L (136-145)
--- NOTE | 2025-07-21 09:16 | Surgery Progress Note ---
Date of Service July 21, 2025 Assessment & Plan (1) Intra-abdominal hemorrhage after procedure: Plan: 40-year-old gentleman POD #2 status post laparoscopic ventral hernia repair with mesh. Found to have moderate hemoperitoneum. He is stable. Repeat hemog lobin and hematocrit with drop Hgb 7.5 today (8.2 yesterday) . Will give 1 unit of PRBCs given dropping hemoglobin. He is slightly tachycardic but bp stable. Abdomen distended, slightly ileus secondary to hemoperitoneum. Will give colace and encouraged ambulation. Recheck H&H at 2:00 pm after transfusion. If stable and patient feeling okay may consider discharge this evening. Dr. Daily has seen and examined patient, agrees with above. Admission and Anticipated Discharge Date Admission Date: July 19, 2025 Subjective feeling better today denies chest pain or shortness of breath no dizziness or lightheadedness only walking to bathroom, not hallway binder is too tight, feels unable to take deep breaths no bowel movement, passing little amount of gas abdominal pain about 2/10. no fevers or chills hungry would like some food. Physical Exam Constitutional: WD/WN, vitals as above + obese, cooperative and comfortable; no acute distress and not ill appearing Respiratory: normal respiratory effort; no respiratory distress Gastrointestinal (Abdomen): Inspection/Auscultation: abdomen normal to inspection, + abdomen distended and + abdominal surgical incision (c/d/i with dermabond and nylon stitches) Percussion/Palpation: + abdomen tender (LLQ) and abdomen soft; no guarding, abdomen not rigid and abdomen not firm subcutaneous fluid at umbilicus at site of mesh repair Skin: no rashes, warm and dry Psychiatric: Orientation: alert and oriented x 3 Results & Data Vital Signs (Past 12 Hours) Vital Signs Temp Pulse Pulse Resp BP Pulse Ox O2 Del Method 07/21/25 07:09 36.7 C 106 H 16 149/73 H 98 Nasal Cannula 07/21/25 01:25 37 C 119 H 16 103/61 96 Nasal Cannula 07/20/25 22:45 120 H 23 93 07/20/25 22:16 37 C 122 H 16 110/61 92 Room Air O2 Flow Rate 07/21/25 07:09 1 07/21/25 01:25 2 07/20/25 22:45 07/20/25 22:16 Laboratory Results 07/21/25 07/20/25 07/20/25 Range/Units 06:36 19:32 14:00 WBC 8.04 9.44 9.40 (4.8-10.8) K/ul RBC 2.27 L 2.49 L 2.64 L (4.70-6.10) M/uL Hgb 7.5 L 8.2 L 8.6 L (14.0-18.0) g/dL Hct 21.6 L 23.2 L 24.5 L (42.0-52.0) % MCV 95.2 93.2 92.8 (80.0-100.0) fL MCH 33.0 32.9 32.6 (25.0-34.0) pg MCHC 34.7 35.3 35.1 (32.0-36.0) g/dL RDW Std Deviation 47.8 H 46.3 46.5 H (36.4-46.3) fL RDW Coeff of Emily 13.9 13.8 13.8 (11.5-14.5) % Plt Count 105 L 117 L 126 L (130-400) K/uL MPV 9.5 9.5 9.9 (9.4-12.4) fL Immature Gran % (Auto) 0.7 0.7 0.6 % Neut % (Auto) 68.8 72.2 73.1 % Lymph % (Auto) 16.9 15.1 13.9 % [place] % (Auto) 12.6 11.5 11.9 % Eos % (Auto) 0.6 0.2 0.1 % Baso % (Auto) 0.4 0.3 0.4 % Neut # (Auto) 5.53 6.80 H 6.86 H (1.40-6.50) K/uL Lymph # (Auto) 1.36 1.43 1.31 (1.20-3.40) K/uL [place] # (Auto) 1.01 H 1.09 H 1.12 H (0.11-0.59) K/uL Eos # (Auto) 0.05 0.02 0.01 (0.00-0.50) K/uL Baso # (Auto) 0.03 0.03 0.04 (0.00-0.20) K/uL Immature Gran # (Auto) 0.06 0.07 0.06 (0.01-0.20) K/uL Polychromasia 1+ Sodium 138 (136-145) mmol/L Potassium 3.6 (3.5-5.1) mmol/L Chloride 102 (98-107) mmol/L Carbon Dioxide 31 (21-32) mmol/L Anion Gap 5 (3-11) BUN 11 (6-23) mg/dl Creatinine 0.91 (0.6-1.4) mg/dl Est Cr Clr Drug Dosing 144.0 ml/min eGFR 110.64 BUN/Creatinine Ratio 12.1 (10-20) Glucose 121 H (70-99(Fasting)) mg/dl Calcium 7.8 L (8.6-10.3) mg/dl Blood Type Blood Type Recheck A Positive Antibody Screen Crossmatch 07/19/25 Range/Units 21:35 WBC (4.8-10.8) K/ul RBC (4.70-6.10) M/uL Hgb (14.0-18.0) g/dL Hct (42.0-52.0) % MCV (80.0-100.0) fL MCH (25.0-34.0) pg MCHC (32.0-36.0) g/dL RDW Std Deviation (36.4-46.3) fL RDW Coeff of Emily (11.5-14.5) % Plt Count (130-400) K/uL MPV (9.4-12.4) fL Immature Gran % (Auto) % Neut % (Auto) % Lymph % (Auto) % [place] % (Auto) % Eos % (Auto) % Baso % (Auto) % Neut # (Auto) (1.40-6.50) K/uL Lymph # (Auto) (1.20-3.40) K/uL [place]undy # (Auto) (0.11-0.59) K/uL Eos # (Auto) (0.00-0.50) K/uL Baso # (Auto) (0.00-0.20) K/uL Immature Gran # (Auto) (0.01-0.20) K/uL Polychromasia Sodium (136-145) mmol/L Potassium (3.5-5.1) mmol/L Chloride (98-107) mmol/L Carbon Dioxide (21-32) mmol/L Anion Gap (3-11) BUN (6-23) mg/dl Creatinine (0.6-1.4) mg/dl Est Cr Clr Drug Dosing ml/min eGFR BUN/Creatinine Ratio (10-20) Glucose (70-99(Fasting)) mg/dl Calcium (8.6-10.3) mg/dl Blood Type A Positive Blood Type Recheck Antibody Screen NEGATIVE Crossmatch See Detail
[2025-07-21] MEDS: DOCUSATE SODIUM 100 MG CAP PO SCH (09:37)
[2025-07-21] MEDS ORDERED: SODIUM CHLORIDE 0.9% 100 ML IV PRN (10:35)
[2025-07-21 16:00] LABS: Hematocrit (blood only) 24.0 % (42.0-52.0); Hemoglobin 8.1 g/dL (14.0-18.0)
[2025-07-21 19:55] LABS: Hematocrit (blood only) 22.9 % (42.0-52.0); Hemoglobin 7.9 g/dL (14.0-18.0)
[2025-07-21] MEDS: OPTIRAY 320 100ml IV ONE (20:32)
--- NOTE | 2025-07-21 22:16 | CT Scan Report ---
Exam(s): CT ABDOMEN + PELVIS With Contrast IV Amt: 93 cc [id number] EXAM: CT Abdomen and Pelvis With Intravenous Contrast CLINICAL HISTORY: Reason for exam: follow-up s/p hernia surgery. TECHNIQUE: Axial computed tomography images of the abdomen and pelvis with intravenous contrast. CTDI is 28.14 mGy and DLP is 1521.46 mGy-cm. Automated exposure control was utilized for the study. A dose lowering technique was utilized adhering to the principles of ALARA. CONTRAST: Patient received 93 cc [id number] of IV contrast COMPARISON: 07/19/2025 trace right pleural effusion and small amount of bibasilar atelectasis, increased since previous. FINDINGS: Lung bases: Unremarkable. No mass. No consolidation. ABDOMEN: Liver: There is fatty infiltration of the liver and hepatomegaly with the liver measuring 24 cm craniocaudad, similar to previous. Gallbladder and bile ducts: Unremarkable. No calcified stones. No ductal dilation. Pancreas: Unremarkable. No mass. No ductal dilation. Spleen: Unremarkable. No splenomegaly. Adrenals: Unremarkable. No mass. Kidneys and ureters: The kidneys are unremarkable. No hydronephrosis or ureterolithiasis is seen involving either kidney. Stomach and bowel: Bowel loops are nondilated. No acute focal inflammatory process is seen involving the bowel. No mucosal thickening. PELVIS: Appendix: No findings to suggest acute appendicitis. Bladder: The urinary bladder is decompressed but otherwise unremarkable. Reproductive: Unremarkable as visualized. ABDOMEN and PELVIS: Intraperitoneal space: Moderate amount of hyperdense fluid consistent with hemorrhage/hematoma throughout the pelvis, stable to slightly decreased compared to previous. No free air. Bones/joints: No acute fracture. No dislocation. Soft tissues: Signs of recent mesh hernia repair of an umbilical hernia. Trace amount of gas and fluid at the site of hernia is not unexpected post surgery. This is slightly less prominent than previous. Vasculature: Unremarkable. No abdominal aortic aneurysm. Lymph nodes: Unremarkable. No enlarged lymph nodes. IMPRESSION: 1. Moderate amount of hyperdense fluid consistent with hemorrhage/hematoma throughout the pelvis, stable to slightly decreased compared to previous. 2. Signs of recent mesh hernia repair of an umbilical hernia. Trace amount of gas and fluid at the site of hernia is not unexpected post surgery. This is slightly less prominent than previous. 3. The kidneys are unremarkable. No hydronephrosis or ureterolithiasis is seen involving either kidney. 4. Hepatic steatosis and hepatomegaly, unchanged Electronically signed by: Subhash Moreno MD 07/21/25 22:15 PM
[2025-07-22 06:22] LABS: Hematocrit (blood only) 24.5 % (42.0-52.0); Hemoglobin 8.2 g/dL (14.0-18.0)
[2025-07-22 06:59] VITALS: BP 133/73; PULSE 104; RESP 18; TEMP 97.5; O2SAT 92
[2025-07-22 07:52] LABS: Anion Gap 5.0 (3-11); Calcium 8.1 mg/dl (8.6-10.3); Carbon Dioxide 32.0 mmol/L (21-32); Chloride 104.0 mmol/L (98-107); Potassium 4.0 mmol/L (3.5-5.1); Sodium 141.0 mmol/L (136-145)
[2025-07-22 07:58] LABS: Blood Urea Nitrogen 8.0 mg/dl (6-23); Creatinine Clr Calc Pharmacy 161.8 ml/min; Glucose 128.0 mg/dl (70-99(Fasting))
--- NOTE | 2025-07-22 09:50 | Surgery Progress Note ---
Date of Service July 22, 2025 Assessment & Plan (1) Hemoperitoneum: Plan: repeat CT shows stable to decreasing blood in abdomen hemodynamically stable H/H stable discharge Admission and Anticipated Discharge Date Admission Date: July 19, 2025 Subjective no complaints pain minimal H/H stable and incresing no SOB nor chest pain Review of Systems Constitutional: no fever and no chills Respiratory: no cough and no dyspnea Cardiovascular: no chest pain Gastrointestinal: + change in bowel habits; no abdominal p ain, no nausea and no vomiting Neurologic: + generalized weakness Psychiatric: no behavioral changes Physical Exam Constitutional: WD/WN, vitals as above Respiratory: normal respiratory effort Cardiovascular: Rate/Rhythm: + tachycardic Gastrointestinal (Abdomen): Inspection/Auscultation: + abdomen distended Percussion/Palpation: + abdomen tender and abdomen soft Musculoskeletal: Head/Neck/Chest: normocephalic and head atraumatic Results & Data Vital Signs (Past 12 Hours) Vital Signs Temp Pulse Resp BP Pulse Ox O2 Del Method FiO2 07/22/25 06:58 36.4 C L 104 H 18 133/73 92 Room Air 07/22/25 02:36 27 H 94 21 07/21/25 23:40 36.9 C 18 120/70 93 CPAP
--- NOTE | 2025-07-22 09:55 | Discharge Summary ---
Date of Service July 22, 2025 Admission HPI Per Admitting Provider 40-year-old status post a laparoscopic ventral hernia repair this morning presents to the hospital this evening with pain and some lightheadedness. Called and to the answering service and we recommended returning to the hospital for recheck. CT scan demonstrates a moderate amount of fluid concerning for postoperative hemorrhage. No blush or signs of active arterial bleed. Some nausea, no vomiting. No fevers. Admission Exam Per Admitting Provider Constitutional: WD/WN, vitals as above Eyes: PERRL, conjunctivae normal, anicteric sclerae Neck: trachea midline, no thyromegaly Respiratory: normal respiratory effort; no respiratory distress and no labored breathing Cardiovascular: Rate/Rhythm: regular rhythm and + tachycardic Gastrointestinal (Abdomen): Inspection/Auscultation: abdomen normal to inspection and + abdomen distended ( mild) Percussion/Palpation: + abdomen tender ( Mild diffuse, at incisions) and abdomen soft; no guarding and abdomen not rigid Skin: no rashes, warm and dry Psychiatric: A+Ox3, euthymic affect Principal Diagnosis Hemoperitoneum status post lap ventral hernia repair Discharge Exam Constitutional WD/WN, vitals as above Respiratory normal respiratory effort Cardiovascular Rate/Rhythm: + tachycardic Gastrointestinal (Abdomen) Inspection/Auscultation: + abdomen distended Percussion/Palpation: + abdomen tender and abdomen soft Musculoskeletal Head/Neck/Chest: normocephalic and head atraumatic Skin no rashes, warm and dry Discharge Data Allergies Allergy/AdvReac Type Severity Reaction Status Date / Time Penicillins Allergy Intermediate Hives Verified 07/19/25 07:06 Consultations 07/19/25 21:38 Consult General Surgery Stat Ordered Studies 07/19/25 18:54 CT abd pelvis IV con only Stat 07/19/25 18:55 CT angio chest PE protocol Stat 07/21/25 20:14 CT Abd and Pelvis [CT abd pelvis IV con only] Stat Hospital Course (1) Hemoperitoneum: This is a 40-year-old male who was status post laparoscopic ventral hernia repair with mesh. He came in the ER postoperatively with complaints of abdominal pain. CT scan was done which showed a moderate hemoperitoneum. He was admitted and given supportive treatment he did progress although his hematocrit continued to decrease. He received a blood transfusion yesterday. His hemoglobin stabilized at 8. He is asymptomatic as far as chest pain shortness of breath. He has some abdominal pain from the procedure but is doing well and will be discharged to home with follow-up my office. He will follow-up Total Time Total Time Spent Total Time Spent (In Minutes): 20 Total Time Includes: Examination of the Patient and Discharge Planning Discharge Plan Discharge Items Patient Disposition: Home - Self-Care Reason For Visit: POST OP HERNIA REPAIR Discharge Diagnosis: postop hernia repair hemoperitoneum (blood in abdomen) Condition on Discharge: Fair Activity: Per Instructions section Non-emergency contact: Primary Care Provider and Surgeon Call non-emergency contact if: you have any medication questions, your pain is not controlled, your pain is worsening, your pain is concerning for you, you have a fever, your temperature is above 101, your wound has increased redness, your wound has increased drainage and your wound pain has increased Follow-up/Referrals: Lino Benavidez MD [Primary Care Provider] - Diet: Regular Addtl Attending Provider Instructions: Post-Surgical ~Discharge Instructions Activity Recommendations: - lifting limitation: (10 pounds for 4-6 weeks), - exercise/sex/sports limit: (nonstrenuous for 2 weeks), - driving or machine use limit: (none for 1 week), - Shower/bathe limit: (may shower beginning tomorrow) Diet: - Resume previous diet SPECIAL CARE INSTRUCTIONS: - May shower in 24 hours. Let water run over area and pat dry. - Leave surgical glue on incisions this will fall off on its own. - Call the surgeon's office with any questions or concerns - - (ex. temperature higher than 101 degrees F, excessive bleeding or pain). MEDICATIONS: - Resume previous medications unless instructed otherwise by your surgeon. - May take extra strength Tylenol as needed for mild to moderate pain -650 mg Tylenol every 6 hours as needed - Percocet 1 every 4- 6 hours, as needed for moderate to severe pain - Recommend daily stool softener (Colace) while taking narcotic pain medication to prevent constipation or straining. FOLLOW UP VISIT: - If not already scheduled, please call the office to schedule a one week follow-up appointment. Office number Pending Studies at Discharge: No Stand-Alone Forms: [employer], Smoking Cessation Medications and DC Order Prescriptions: Continued pantoprazole 20 mg Tablet,Delayed Release (Dr/Ec) 20 mg PO QAM lisinopril 5 mg Tablet 5 mg PO QAM oxycodone-acetaminophen [Percocet] 5-325 mg tablet 1 tab PO Q6H PRN (Reason: pain) Qty: 14 0RF Discharge Orders: Discharge Order (Routine); Ordered 07/22/25 Ordered By: Evan Daily Admission Data Admit Date/Time: 07/19/25 22:47 Attending Provider: Evan Daily Admit Provider: Tam Dao Primary Care Provider: Lino Benavidez Other Providers: Tam Dao
--- NOTE | 2025-07-22 10:12 | Electrocardiogram Report ---
Test Reason : Blood Pressure : */* mmHG Vent. Rate : 105 BPM Atrial Rate : 105 BPM P-R Int : 126 ms QRS Dur : 94 ms QT Int : 340 ms P-R-T Axes : 48 11 51 degrees QTcB Int : 449 ms Sinus tachycardia Otherwise normal ECG When compared with ECG of 19-Jul-2025 19:00, Nonspecific T wave abnormality now evident in Lateral leads Confirmed by Frantz Gardner ([id number]) on 07/22/2025 10:12:30 AM Referred By: REFERRED SELF Confirmed By: Frantz Gardner
[2025-07-22] MEDS: FERROUS SULFATE 325 MG TAB PO ONE (10:27)
== END 2025-07-22 10:51 | disposition home or self-care (01) ==
LOC: ED 18:49 → 3N 18:49